=== PATIENT | male | born 1960 | race Caucasian/White ===

== ENCOUNTER 2016-06-09 18:25 | Emergency (ER) | payer BC, OTHER ==
[~2016-06-09] VITALS: Ht 188 cm; Wt 110.0 kg
[2016-06-09 18:40] VITALS: BP 180/76; PULSE 80; RESP 22; TEMP 98.2
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
[2016-06-09] MEDS ORDERED: SILVER SULFADIAZINE 1% CR 400 GM JAR TOPICAL ONE (19:15)
[2016-06-09 19:40] LABS: BLOOD, URINE NEG (NEG); COMMENT (UR) CULT NOT INDICATED; CULTURE IF INDICATED CULT NOT INDICATED; GLUCOSE,URINE NEG (NEG); HYALINE CAST, URINE 1 /lpf (RARE); KETONE, URINE 10 mg/dL (NEG); MUCUS URINE FEW /lpf (OCC); NITRITE,URINE NEG (NEG); URINE COLOR YELLOW (YELLW/STRAW)
--- NOTE | 2016-06-09 19:53 | RADRPT ---
EXAM DATE/TIME: 06/09/2016 19:34 [facility] COMPARISON: No previous studies available for comparison. INDICATIONS : Right ankle pain MEDICAL HISTORY : None. SURGICAL HISTORY : None. ENCOUNTER: Initial ACUITY: 1 day PAIN SCORE: 10/10 LOCATION: Right ankle FINDINGS: Three view exam was performed of the right ankle. The bony structures are in normal alignment. No e vidence of fracture, dislocation. There is soft tissue swelling. The ankle mortise is intact. No ra diopaque foreign bodies are seen. Bony mineralization is normal. CONCLUSION: Soft tissue swelling without fracture. Zeus Vu MD on June 09, 2016 at 19:52 Board Certified Radiologist. This report was verified electronically.
[2016-06-09] MEDS ORDERED: CEPHALEXIN MONOHYDRATE 500 MG CAP PO ONE (20:00)
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
[2016-06-09] MEDS ORDERED: CEPH-460 PO (20:42)
[2016-06-09] MEDS ORDERED: SILV1CRE20 TOPICAL (20:42)
== END 2016-06-09 21:11 | disposition home or self-care (01) ==
LOC: NEPC 18:25
DX: S93.401A Sprain of unspecified ligament of right ankle, initial encounter (principal); S30.0XXA Contusion of lower back and pelvis, initial encounter; S40.812A Abrasion of left upper arm, initial encounter; S40.811A Abrasion of right upper arm, initial encounter; S80.812A Abrasion, left lower leg, initial encounter; S80.811A Abrasion, right lower leg, initial encounter; V28.4XXA Motorcycle driver injured in noncollision transport accident in traffic accident, initial encounter; Y93.89 Activity, other specified; Y92.410 Unspecified street and highway as the place of occurrence of the external cause; Y99.9 Unspecified external cause status
CPT/HCPCS: 72100; 72170; 73610; 81001; 99284